=== PATIENT | female | born 1990 | race Caucasian/White ===

== ENCOUNTER 2020-11-19 12:16 | Emergency (ER) | payer MEDICAID, SELFPAY ==
[2020-11-19 12:17] VITALS: BP 111/72; PULSE 97; RESP 16; TEMP 37; O2SAT 100; BMI 23.9
[2020-11-19 12:51] VITALS: PULSE 97; RESP 16; TEMP 37; O2SAT 100; BMI 23.9
--- NOTE | 2020-11-19 13:14 | HMH.EDUTC ---
[facility] [place] Disposition Clinical Impression: Dental abscess Disposition: Home, Self-Care Condition on Discharge: Good Instructions: Tooth Abscess, Ibuprofen, Amoxicillin and Clavulanic Acid Additional Instructions: Take medication as prescribed Follow up with Dentist as soon as possible for further evaluation and treatment Return if needed Straight to ER if any life threatening symptoms Prescriptions: Ibuprofen [Ibuprofen 600mg Tablet] 600 mg PO Q6HP PRN #20 tab PRN Reason: Moderate Pain Transmission Status: Pending to [id number] Amoxicillin/Potassium Clav [Augmentin 875-125 Tablet] 1 tab PO Q12H 10 Days #20 tab Transmission Status: Pending to [id number] Referrals: Provider,Referral, MD [Primary Care Provider] - As needed Time of Disposition: 13:19 Medical Decision Making - Kayode Inquiry Pt receiving controlled substance: No Kayode was queried for this patient: No Vital Signs: 11/19/20 12:17 11/19/20 12:51 Temperature 98.6 F 98.6 F Temperature Source Oral Oral Pulse Rate [Left Radial] 97 H 97 H Respiratory Rate 16 16 Blood Pressure [Left Arm] 111/72 Blood Pressure Mean [Left Arm] 85 Blood Pressure Source [Left Arm] Automatic Cuff Blood Pressure Position [Left Arm] Sitting 02 Sat by Pulse Oximetry 100 100 Oxygen Delivery Method Room Air [facility] HPI - General Stated complaint: facial swelling, pain Time Seen by Provider: 11/19/20 13:15 Mode of Arrival: Ambulatory Source of Information: Patient Limitations: No Limitations Description of Symptoms (Recalled from Triage Doc. by RN): pt c/o of pain in her L upper back two molars. she states it feels like the infection has spread throughout her jaw and down towards her neck. HEENT Symptoms (Recalled from RN notes): Yes (L upper jaw pain) Resp Symptoms (Recalled from RN notes): No Skin Symptoms (Recalled from RN notes): No MS Symptoms (Recalled from RN notes): No Functional Status (Recalled from RN notes): na - History of Present Illness Provider Complaint: Patient state that she has been having dental pain for a couple of weeks and now feels like she has an infection and it is starting to get worse State that she feels like her jaw is swelling and feels like it is moving toward her neck State that knew she needed to come in and get checked and on antibiotics before the dentist can fix it so she came in - Related Data Previous Rx's Medication Instructions Recorded Amoxicillin/Potassium Clav 1 tab PO Q12H 10 Days #20 tab 11/19/20 [Augmentin 875-125 Tablet] Ibuprofen [Ibuprofen 600mg 600 mg PO Q6HP PRN #20 tab 11/19/20 Tablet] Allergies Allergy/AdvReac Type Severity Reaction Status Date / Time No Known Allergies Allergy Verified 11/19/20 12:54 - Worker's Comp Is this a Worker's Comp case?: No [facility] History - Hepatitis A Screen Drug use history?: No High risk sexual behaviors?: No History of sexually transmitted infection?: No Currently employed?: No Childcare worker?: No Do you have indoor plumbing?: Yes Do you have electricity?: Yes Attestation statement:: This patient has been screened for Hepatitis A risk factors. I have reviewed the patient's past medical history: Yes ROS Obtained: Yes All systems reviewed & no additional complaints, Yes Systems reviewed as appropriate & no additional complaints - Constitutional Constitutional: Reports system reviewed and no additional complaints, except as docu - ENT Ears, Nose, Mouth, and Throat: Reports system reviewed and no additional complaints, except as docu, Reports dental pain - Cardiovascular Cardiovascular: Reports system reviewed and no additional complaints, except as docu - Respiratory Respiratory: Reports system reviewed and no additional complaints, except as docu Physical Exam - General General appearance: alert, in no apparent distress - Expanded ENT Exam Teeth exam: Present: dental caries, other (Multiple decaying teeth noted w
[2020-11-19 13:20] VITALS: BP 113/78; PULSE 90; RESP 18; TEMP 36.9
== END 2020-11-19 13:22 | disposition home or self-care (01) ==
PROVIDERS: Emergency Provider Nurse Practitioner
DX: K04.7 Periapical abscess without sinus (principal)
CPT/HCPCS: 99202; G0463

== ENCOUNTER 2021-06-21 14:29 | Emergency (ER) | payer MEDICAID, SELFPAY ==
[2021-06-21 16:03] VITALS: BP 115/83; PULSE 74; RESP 17; TEMP 36.9; O2SAT 97; BMI 19.3
--- NOTE | 2021-06-21 16:12 | HMH.EDUTC ---
[facility] [place] Disposition Clinical Impression: Dental abscess Disposition: Home, Self-Care Condition on Discharge: Good Instructions: Tooth Abscess Additional Instructions: Use dental balls as directed Follow up with Dentist for further treatment and evaluation Take medication as prescribed Return if needed Straight to ER if any life threatening symptoms Prescriptions: Amoxicillin/Potassium Clav [Amox-Clav 875-125 mg Tablet] 1 tab PO BID #20 tab Transmission Status: Pending to [id number] Referrals: Provider,Referral, MD [Primary Care Provider] - As needed Time of Disposition: 16:18 Medical Decision Making - Kayode Inquiry Pt receiving controlled substance: No Kayode was queried for this patient: No Vital Signs: 06/21/21 16:03 Temperature 98.5 F Temperature Source Oral Pulse Rate [Right Radial] 74 Respiratory Rate 17 Blood Pressure [Right Arm] 115/83 Blood Pressure Mean [Right Arm] 93 Blood Pressure Source [Right Arm] Automatic Cuff Blood Pressure Position [Right Arm] Sitting 02 Sat by Pulse Oximetry 97 Oxygen Delivery Method Room Air Orders (Tests/Meds): ED MEDICATIONS Discontinued Medications Generic Name Dose Route Start Last Admin Trade Name Freq PRN Reason Stop Dose Admin Benzocaine/Butamben/Tetracaine HCl 1 gm 06/21/21 16:16 Tetracaine/Benzocaine/Butamben 56 Gm [place] TP 06/21/21 16:17 ONCE ONE Lidocaine HCl 15 ml 06/21/21 16:16 Lidocaine 2% Viscous Sheela 15ml Udc PO 06/21/21 16:17 ONCE ONE Medical Decision Narrative: denies states that she just got off her period [facility] [place] HPI - General Stated complaint: tooth pain/swelling Time Seen by Provider: 06/21/21 16:12 Mode of Arrival: EMS Source of Information: Patient Limitations: No Limitations Description of Symptoms (Recalled from Triage Doc. by RN): PT states that she has a infected wisdom tooth. This has been going on for 1 week. HEENT Symptoms (Recalled from RN notes): No Resp Symptoms (Recalled from RN notes): No Skin Symptoms (Recalled from RN notes): No MS Symptoms (Recalled from RN notes): No Functional Status (Recalled from RN notes): n/a - History of Present Illness Provider Complaint: Patient state that she thinks she may have a dental abscess States that she thinks she has infection in wisdom tooth that is coming in States that she is having some swelling and tenderness in her gum area and the right side of her jaw is swelling so she came in - Related Data Previous Rx's Medication Instructions Recorded Amoxicillin/Potassium Clav 1 tab PO Q12H 10 Days #20 tab 11/19/20 [Augmentin 875-125 Tablet] Ibuprofen [Ibuprofen 600mg 600 mg PO Q6HP PRN #20 tab 11/19/20 Tablet] Amoxicillin/Potassium Clav 1 tab PO BID #20 tab 06/21/21 [Amox-Clav 875-125 mg Tablet] Allergies Allergy/AdvReac Type Severity Reaction Status Date / Time cefdinir [From Omnicef] Allergy Intermediate Rash Verified 06/21/21 16:10 - Worker's Comp Is this a Worker's Comp case?: No Is this an [facility] Worker's Comp?: No Is this a [place] Worker's Comp?: No H History - Hepatitis A Screen Drug use history?: No High risk sexual behaviors?: No History of sexually transmitted infection?: No Currently employed?: No Childcare worker?: No Do you have indoor plumbing?: Yes Do you have electricity?: Yes Attestation statement:: This patient has been screened for Hepatitis A risk factors. I have reviewed the patient's past medical history: Yes ROS Obtained: Yes All systems reviewed & no additional complaints, Yes Systems reviewed as appropriate & no additional complaints - Constitutional Constitutional: Reports system reviewed and no additional complaints, except as docu, Denies body ache, Denies chills, Denies fever(s) - ENT Ears, Nose, Mouth, and Throat: Reports system reviewed and no additional complaints, except as docu, Reports dental pain - Cardiovascular Cardiovascular: Reports system
[2021-06-21 16:32] VITALS: BP 115/83; PULSE 74; RESP 17; TEMP 36.9; O2SAT 97
== END 2021-06-21 16:32 | disposition home or self-care (01) ==
PROVIDERS: Emergency Provider Nurse Practitioner
DX: K04.7 Periapical abscess without sinus (principal); K05.10 Chronic gingivitis, plaque induced
CPT/HCPCS: 99212; G0463

== ENCOUNTER 2024-05-07 08:49 | Emergency (ER) | payer MEDICAID, SELFPAY ==
[2024-05-07 08:51] VITALS: BP 147/92; PULSE 85; RESP 18; TEMP 36.9; O2SAT 100; BMI 23.3
[2024-05-07 09:00] VITALS: BP 122/76; PULSE 74; O2SAT 100
[2024-05-07 09:21] LABS: Basophils % 0.6 % (0.1-2.0); Eosinophils # 0.3 K/mm3 (0.0-0.4); Eosinophils % 4.5 % (0.1-12.0); Hematocrit 39.9 % (37.0-47.0); Hemoglobin 13.5 g/dL (12.2-16.2); Lymphocytes # 1.9 K/mm3 (0.7-4.5); Lymphocytes % 30.2 % (10-50); Mean Corpuscular HGB Conc 33.8 g/dL (31.8-35.4); Mean Corpuscular Hemoglobin 30.9 pg (27.0-31.2); Mean Corpuscular Volume 91.3 fl (81-99); Mean Platelet Volume 10.2 fl (7.4-10.4); Monocytes # 0.5 K/mm3 (0.1-1.0); Monocytes % 8.4 % (1.7-9.3); Neutrophils # 3.5 K/mm3 (1.8-7.8); Neutrophils % 55.8 % (37.0-80.0); Platelet Count 297 K/mm3 (142-424); Red Blood Count 4.37 M/mm3 (4.20-5.40); Red Cell Distribution Width 11.9 % (11.5-17.5); White Blood Count 6.2 K/mm3 (4.8-10.8)
[2024-05-07 09:28] LABS: Albumin Level 4.3 g/dl (3.5-5.0); Chloride 106 mmol/L (98-107); Potassium 3.7 mmoL/L (3.5-5.1); Sodium 136 mmol/L (136-145)
--- NOTE | 2024-05-07 09:28 | ED_ITS ---
Discharge Plan Disposition Patient Disposition: Home, Self-Care Chief Complaint: Urogenital-Female Prescriptions Prescriptions: No Action ibuprofen 600 MG tablet 600 mg PO Q6HP PRN (Reason: Moderate Pain) Qty: 20 0RF amoxicillin-pot clavulanate 1 EACH tablet 1 tab PO Q12H 10 Days Qty: 20 0RF amoxicillin-pot clavulanate 1 EACH tablet 1 tab PO BID Qty: 20 0RF Referrals Follow up/Referrals: Provider,Referral, [Primary Care Provider] - See instructions Carmita Naik DO [Staff Physician] - See instructions Activity Restrictions/Add. Instructions Additional Instructions/Restrictions: Call your family doctor to establish care for this visit to the emergency department and schedule follow-up within 48 hours to ensure improvement. If you have any worsening of your condition or any other concerning signs or symptoms, return to the emergency department or your primary care doctor for further evaluation. Dr. Naik's information is here, call her to schedule follow-up regarding heavy bleeding and set up WIRE TRANSFER CLERK follow-up. Clinical Impressions Clinical Impression: Menorrhagia Qualifiers: Menorrhagia type: with regular cycle Qualified Code(s): N92.0 - Excessive and frequent menstruation with regular cycle Instructions Patient Instructions: DI for Urinary Tract Infection (UTI), DI for Urinary Tract Infection in Children Print Language Print Language: Serbian Discharge ED Provider: Imtiaz Young General Adult HPI General Chief complaint: Urogenital-Female Stated complaint: heavy bleeding, weak Time Seen by Provider: 05/07/24 09:05 Mode of Arrival: Ambulatory Source of Information: Patient Limitations: No Limitations Description of Symptoms (Recalled from ER Triage Doc. by RN): Reports that she is on her period and that it is extremely heavy. States she is bleeding through a tampon every two hours. Reports being faint and lethargic also. History of Present Illness HPI narrative: Please note that above description of symptoms, in this electronic medical record under categorization of recalled from ER triage doctor by RN are reflective of an initial nursing assessment, however, is not reflective of my full history and physical exam that was personally taken and clarified. Consequentially, this preceding description of symptoms, which may include the patient's categorized chief complaint in the EMR, do not reflect my personal clinical impression, and the ultimate description of history of present illness and patient stated complaints should be deferred to this section of the note. Unless stated otherwise or congruent with this section of the note, additional signs, symptoms, or incongruence should be interpreted as inaccurate with my clinical impression. Related Data Previous Rx's ?Medication ?Instructions ?Recorded amoxicillin 875 mg-potassium 1 tab PO Q12H 10 days #20 tabs 11/19/20 clavulanate 125 mg tablet ibuprofen 600 mg tablet 600 mg PO Q6HP PRN Moderate Pain 11/19/20 #20 tabs amoxicillin 875 mg-potassium 1 tab PO BID #20 tabs 06/21/21 clavulanate 125 mg tablet Allergies Allergy/AdvReac Type Severity Reaction Status Date / Time cefdinir (From Omnicef) Allergy Intermediate Rash Verified 06/21/21 16:10 [facility] Disclaimer: The information contained in this section may have been updated after the patient was seen, as this information can be updated by other users. Social History Smoking Status: Current every day smoker alcohol intake: never current occupational status: employed Travel in the last 8 weeks: None ROS Obtained: Yes All systems reviewed & no additional complaints except as documented Physical Exam General General appearance: alert Head Head exam: atraumatic and normocephalic Eye Eye exam: Present normal appearance, PERRL and EOMI Neck Neck exam: Present normal inspection, full ROM and trachea midline Respiratory Respiratory exam: Absent respiratory distress, wheezes, stridor, accessory muscle use or prolonged expiratory phase Cardiovascular Cardiovascular exam: Present other (Pulses equal symmetric in upper and lower extremities) Abdominal Exam Abdominal exam: Present soft; Absent distention, tenderness or pulsatile mass Extremities Exam Extremities exam: Absent edema Neurological Exam Neurological exam: Present alert, oriented X3 and CN II-XII intact; Absent motor sensory deficit Skin Skin exam: Present warm and dry; Absent diaphoresis or erythema Medical Decision Making Medical Records Medical records reviewed: Yes I reviewed the patient's medical records. Screening: Per USPSTF and CDC recommendations, given the prevalence of disease in our region, it is our hospital?s policy to screen for HIV and viral Hepatitis for all patients aged 18 and over and those with ongoing risk factors. Kayode Inquiry Pt receiving controlled substance: No Kayode was queried for this patient: No Vital Signs: 05/07/24 08:51 05/07/24 09:00 05/07/24 09:30 Temperature 98.4 F Temperature Source Oral Pulse Rate 74 72 Pulse Rate [Radial] 85 Respiratory Rate 18 Blood Pressure 122/76 115/74 Blood Pressure [Right Arm] 147/92 H Blood Pressure Mean [Right Arm] 110 Blood Pressure Source [Right Arm] Automatic Cuff Blood Pressure Position [Right Arm] Sitting 02 Sat by Pulse Oximetry 100 100 100 Oxygen Delivery Method Room Air Room Air Room Air Lab Data Lab Results 05/07/24 08:58: WBC 6.2, RBC 4.37, Hgb 13.5, Hct 39.9, MCV 91.3, MCH 30.9, MCHC 33.8, RDW 11.9, Plt Count 297, MPV 10.2, Neut % (Auto) 55.8, Lymph % (Auto) 30.2, [place] % (Auto) 8.4, Eos % (Auto) 4.5, Baso % (Auto) 0.6, Neut # (Auto) 3.5, Lymph # (Auto) 1.9, [place] # (Auto) 0.5, Eos # (Auto) 0.3, Baso # (Auto) 0.0, PT 11.9, INR 1.07, APTT 28.6, Sodium 136, Potassium 3.7, Chloride 106, Carbon Dioxide 27, Anion Gap 6.7, BUN 13, Creatinine 0.70, Estimated Creat Clear 106, Estimated GFR 97, Est GFR ( Amer) 117, Glucose 97, Calcium 9.4, Total Bilirubin 0.6, AST 22, ALT 16, Alkaline Phosphatase 47, Total Protein 6.6, Albumin 4.3, Globulin 2.3, Albumin/Globulin Ratio 1.9 H, HCG, Quant < 2 05/07/24 09:44: Urine Color Yellow, Urine Appearance Clear, Urine pH 6.5, Ur Specific [place] 1.015, Urine Protein Negative, Urine Glucose (UA) Negative, Urine Ketones Negative, Urine Blood 3+ A, Urine Nitrate Negative, Urine Bilirubin Negative, Urine Urobilinogen 0.2, Ur Leukocyte Esterase Negative 05/07/24 08:58 05/07/24 08:58 Orders (Tests/Meds): ORDERS Category Date Time Status Complete Blood Count Auto Diff Stat Lab 05/07/24 08:58 Completed Comprehensive Metabolic Panel Stat Lab 05/07/24 08:58 Completed HCG,Quantitative Stat Lab 05/07/24 08:58 Completed HIV Combo Stat Lab 05/07/24 08:58 Received Hepatitis C Ab Qual. W/ RFX Stat Lab 05/07/24 08:58 Received PT INR [Prothrombin Time INR] Stat Lab 05/07/24 08:58 Completed PTT [Activated Partial Thrombo Time] Stat Lab 05/07/24 08:58 Completed UA [Urinalysis and Microscopic] Stat Lab 05/07/24 09:44 Results Medical Decision Narrative: This is a 34-year-old female history of anxiety presenting with heavy menstrual period. Patient states that she had heavy menstrual period last month in March 2024. States that it lasted about 2 weeks. She stated that she thought it would be a one-time thing, however 4 days prior to this on 05/03, she started her menstrual period. She states that she has been saturating about 1 tampon every 2 hours and feels like she is just feeling weak and worn out. Having intermittent cramping in his left lower quadrant in nature and seems like it is associated with bowel movements. She has had softer stools than usual. Pain is mild in intensity and does not radiate. No nausea, vomiting, fevers, chills, urinary symptoms, or any other concerns. Patient not currently on any contraceptive. History was obtained via conversation with patient. On arrival, patient hemodynamically stable, alert, oriented x4, appropriate, GCS 15, moving all extremities spontaneously, pupils equal and reactive to light. Full physical exam performed and significant for very well-appearing female no acute distress. Does not appear pale. She is not tachycardic. Abdomen soft, nontender, nondistended. No discomfort elicited on my exam. Differential includes menorrhagia, dysmenorrhea, , miscarriage, coagulopathy, polyp, fibroid, adenomyosis, among others. Patient placed on continuous cardiac monitoring and continuous pulse ox with initial blood pressure 147/92, heart rate 85, saturation 100% on room air. Workup independently interpreted and significant for normal hemoglobin and platelets, normal coags. Nonactionable chemistry with negative hCG. Urinalysis with blood, no concern for infection. CT scan of the abdomen was considered, but given completely negative workup, very clinically well patient, nonactionable physical exam with no abdominal tenderness and no outward signs of abnormality, normal labs, I feel this is most likely national account representative of menorrhagia. Patient biggest concern is that her sister was diagnosed with endometriosis and needed to have total hysterectomy with bilateral oophorectomy in order to control the symptoms. I do not feel this is consistent with endometriosis given she is having heavy bleeding with mild cramping. Given patient presentation, workup, history, this most likely represents menorrhagia. Because patient at baseline without signs or symptoms of clinical decompensation, deemed appropriate for discharge. Results were relayed to patient who voiced understanding and were agreeable to outpatient management and follow up. I discussed my clinical impression with patient and answered all questions. At this time, the evidence for any other entities in the differential is insufficient to warrant any further testing or ED observation. This was explained as well. Advisory was given that persistent or worsening symptoms require further evaluation. I confirmed the understanding of this discussion. Geosciences Associate Professor disclaimer Much of this encounter note is an electronic seed sorter spoken language to printed text. Electronic seed sorter of the spoken language may permit errors. Although I have reviewed the note, some errors may still exist. Critical Care Critical Care Time Critical Care Time: No
[2024-05-07 09:29] LABS: Activated Partial Thrombo Time 28.6 seconds (22.8-30.6); INR 1.07 (0.9-1.1); Prothrombin Time 11.9 seconds (10.1-12.5)
[2024-05-07 09:30] VITALS: BP 115/74; PULSE 72; O2SAT 100
[2024-05-07 09:31] LABS: Alanine Aminotransferase 16 U/L (12-78); Albumin/Globulin Ratio 1.9 (1.1-1.8); Alkaline Phosphatase 47 U/L (38-126); Anion Gap 6.7 mEq/L (5-15); Aspartate Amino Transferase 22 U/L (14-36); Bilirubin,Total 0.6 mg/dl (0.2-1.3); Blood Urea Nitrogen 13 mg/dl (7-17); Calcium 9.4 mg/dl (8.4-10.2); Carbon Dioxide 27 mmol/L (22.0-30.0); Creatinine Clearance Estimated 106 mL/min (50-200); Estimated Glomerular Filt Rate 97 ml/min (>60); GFR (African American) 117 ML/MIN (>60); Globulin 2.3 g/dL (1.3-3.2); Glucose 97 mg/dl (74-100); Total Protein,Serum 6.6 g/dl (6.3-8.2)
[2024-05-07 09:48] LABS: Microscopic, Urine URINE MICROSCOPIC (MICROSCOPIC)
[2024-05-07 10:05] LABS: Appearance,Urine CLEAR (Clear); Bilirubin,Urine Negative (Negative); Blood, Urine 3+ (Negative); Color,Urine YELLOW (Yellow); Glucose,Urine (UA) Negative (Negative); Ketones,Urine Negative (Negative); Leukocyte Esterase,Urine Negative (Negative); Nitrate,Urine Negative (Negative); PH,Urine 6.5 (5.0-8.5); Protein,Urine Negative (Negative); Specific Gravity, Urine 1.015 (1.005-1.030); Urobilinogen,Urine 0.2 EU/dl (0.2)
[2024-05-07 10:15] LABS: HCG,Quantitative < 2 mIU/ml (0-5.42)
--- NOTE | 2024-05-07 10:15 | PC.NURSE ---
PT RESTING IN BED AT THIS TIME
[2024-05-07 10:36] LABS: RBC,Urine 50-100 #/hpf (0-3); WBC,Urine Occasional #/hpf (0-3)
[2024-05-07 10:36] LABS: HIV Combo NEGATIVE (Negative)
[2024-05-07 10:37] LABS: Bacteria,Urine Trace /lpf
[2024-05-07 10:43] VITALS: BP 115/74; PULSE 72; RESP 18; TEMP 36.9; O2SAT 100
[2024-05-07 10:44] LABS: Hepatitis C Ab Qual. W/ RFX NEGATIVE (Negative)
== END 2024-05-07 10:43 | disposition home or self-care (01) ==
PROVIDERS: Emergency Provider Emergency Medicine
DX: N92.0 Excessive and frequent menstruation with regular cycle (principal); R53.1 Weakness; R10.32 Left lower quadrant pain
CPT/HCPCS: 80053; 81001; 84702; 85025; 85610; 85730; 86803; 87389; 99283